=== PATIENT | male | born 1975 | race Caucasian/White ===

== ENCOUNTER 2021-08-08 04:27 | Emergency (ER) | payer BC, SELFPAY ==
[2021-08-08] MEDS ORDERED: Amoxicillin/Potassium Clav 875 MG TAB ONE (05:09)
== END 2021-08-08 05:13 | disposition home or self-care (01) ==
LOC: NAV ERS 04:27
DX: K04.7 Periapical abscess without sinus (principal); F41.9 Anxiety disorder, unspecified; F17.210 Nicotine dependence, cigarettes, uncomplicated; I10 Essential (primary) hypertension; Z79.899 Other long term (current) drug therapy
CPT/HCPCS: 99282